=== PATIENT | female | born 1960 | race Caucasian/White ===

== ENCOUNTER 2022-12-04 11:35 | Inpatient (IN) | payer OTHER ==
[~2022-12-04] VITALS: Ht 162.6 cm; Wt 90.7 kg
[2022-12-04] MEDS ORDERED: Aspir 8181 MG PO (11:51)
[2022-12-04] MEDS ORDERED: BUPR150ER PO (11:51)
[2022-12-04] MEDS ORDERED: ATOR20 PO (11:51)
[2022-12-04] MEDS ORDERED: GUANFACINE HCL2 M1 PO (11:52)
[2022-12-04] MEDS ORDERED: NEPHRO VITAMIN0.8 MG PO (11:53)
[2022-12-04] MEDS ORDERED: MAGNESIUM OXID500 MG PO (11:53)
[2022-12-04] MEDS ORDERED: PARO30 PO (11:54)
[2022-12-04] MEDS ORDERED: PARO20 PO (11:55)
[2022-12-04] MEDS ORDERED: GABA300 PO (11:57)
[2022-12-04] MEDS ORDERED: TRAZ100 PO (11:57)
[2022-12-04] MEDS ORDERED: Lopressor 25 mg25 MG PO (11:58)
[2022-12-04] MEDS ORDERED: ACET500 PO (12:04)
[2022-12-04] MEDS ORDERED: LOPE2C PO (12:05)
[2022-12-04] MEDS ORDERED: OXYC5 PO (12:06)
[2022-12-04] MEDS ORDERED: SIME80CH PO (12:07)
[2022-12-04 13:21] LABS: Hematocrit 30.1 % (33.0-51.0); Hemoglobin 9.9 g/dL (11.5-16.0); Mean Corpuscular HGB 31.8 pg (26.0-34.0); Mean Corpuscular HGB Conc 32.9 g/dL (31.5-36.5); Mean Corpuscular Volume 97 fL (80-100); Mean Platelet Volume 8.7 fL (9.1-12.4); NRBC ABSOLUTE 0.02 K/mm3 (0.00-0.02); NRBC Auto 0.3 /100 WBC (0.0-0.2); Platelet Count 593 K/mm3 (150-400); RDW Coefficient Variation 14.2 % (11.7-14.2); RDW Standard Deviation 49.6 fL (35.1-46.3); Red Blood Cell Count 3.11 M/mm3 (3.80-5.20); White Blood Cell Count 7.82 K/mm3 (4.00-11.30)
[2022-12-04 13:46] LABS: Albumin, Blood 1.6 g/dL (3.4-5.0); Albumin/Globulin Ratio 0.4 (0.8-1.8); Bilirubin, Total 0.3 mg/dL (0.1-1.0); Bun/Creatinine Ratio 18.7 (12.0-20.0); Calcium, Blood 8.5 mg/dL (8.5-10.1); Creatinine, Blood 0.37 mg/dL (0.40-1.00); Globulin, Blood 4.5 g/dL (2.2-4.0); Potassium, Blood 3.5 mmol/L (3.5-5.5); Total Protein, Blood 6.1 g/dL (6.4-8.2)
[2022-12-04 13:52] LABS: BAND PERCENT MAN 32 % (0-8); BASOPHILS PERCENT MAN 0 % (0-2); EOSINOPHILS ABSOLUTE MAN 0.07 K/mm3 (0.00-0.68); EOSINOPHILS PERCENT MAN 1 % (0-6); LYMPHOCYTES ABSOLUTE MAN 2.26 K/mm3 (0.84-5.20); LYMPHOCYTES PERCENT MAN 29 % (21-46); METAMYELOCYTE ABSOLUTE MAN 0.07 K/mm3 (0.00-0.00); METAMYELOCYTE PERCENT MAN 1 % (0-0); MONOCYTES ABSOLUTE MAN 1.09 K/mm3 (0.16-1.47); MONOCYTES PERCENT MAN 14 % (4-13); MYELOCYTE ABSOLUTE MAN 0.07 K/mm3 (0.00-0.00); MYELOCYTE PERCENT MAN 1 % (0-0); NEUTROPHILS ABSOLUTE MAN 4.22 K/mm3 (1.96-9.15); SEG NEUTROPHILS PERCENT MAN 22 % (41-73); TOTAL CELLS COUNTED 100
[2022-12-04 15:03] LABS: Source, Urine Straight Cath
[2022-12-04 15:05] LABS: Appearance, Urine Clear (Clear); Bilirubin, Urine Neg (Neg); Blood, Urine Neg (Neg); Color, Urine Yellow (P-Yellow); Glucose Qualitative, Urine Neg (Neg); Ketones, Urine Neg (Neg); Leukocyte Esterase, Urine Neg (Neg); Nitrite, Urine Neg (Neg); Protein, Urine Neg (Neg); Specific Gravity, Urine 1.005 (1.003-1.022); Urobilinogen, Urine NORM (Normal)
[2022-12-04 20:05] VITALS: BP 146/73
[2022-12-04] MEDS ORDERED: Ventolin5 MG/1 ML INH (20:57)
[2022-12-04 21:49] LABS: Adenovirus F 40/41 Not Detected (NOT DETECT); Astrovirus Not Detected (NOT DETECT); Campylobacter Sp Not Detected (NOT DETECT); Cryptosporidium Not Detected (NOT DETECT); Cyclospora Cayetanensis Not Detected (NOT DETECT); E. Coli O157 Not Detected (NOT DETECT); Entamoeba Histolytica Not Detected (NOT DETECT); Enteroaggregative E. coli-EAEC Not Detected (NOT DETECT); Enteropathogenic E. coli-EPEC Not Detected (NOT DETECT); Enterotoxigenic E. coli-ETEC Not Detected (NOT DETECT); Giardia Lamblia Not Detected (NOT DETECT); Norovirus GI/GII Not Detected (NOT DETECT); Plesiomonas Shigelloides Not Detected (NOT DETECT); Rotavirus A Not Detected (NOT DETECT); Salmonella Sp Not Detected (NOT DETECT); Sapovirus Not Detected (NOT DETECT); Shiga Toxin-prod E. coli-STEC Not Detected (NOT DETECT); Shigella/Enteroin E. coli-EIEC Not Detected (NOT DETECT); Vibrio Cholerae Not Detected (NOT DETECT); Vibrio Sp Not Detected (NOT DETECT); Yersinia Enterocolitica Not Detected (NOT DETECT)
--- NOTE | 2022-12-05 04:26 | NUR ---
SHIFT SUMMARY 62 YR F ADMITTED ON 12/04/22 FOR SEPSIS DUE TO INFECTIOUS COLITIS. FULL CODE. NO ACUTE CHANGES THIS SHIFT. PT C/O ABDOMINAL PAIN AND INSOMNIA. SHE HAD A MEDIUM SIZE BM ON THE BEDPAN BUT WAS ABLE TO AMBULATE TO THE BATHROOM WITH ASSISTANCE AFTER THAT. SHE ASKED TO USE THE BATHROOM SEVERAL TIMES BUT WAS UNABLE TO PRODUCE ANOTHER BM. SHE ALSO C/O INSOMNIA AND HAS ONLY SLEPT OFF AND ON THROUGHOUT THE NIGHT. SHE IS A&O X 4 AND SHE SEEMS ABIT ANXIOUS.
[2022-12-05 06:16] LABS: Hematocrit 28.4 % (33.0-51.0); Hemoglobin 9.4 g/dL (11.5-16.0); Mean Corpuscular HGB 32.2 pg (26.0-34.0); Mean Corpuscular HGB Conc 33.1 g/dL (31.5-36.5); Mean Corpuscular Volume 97 fL (80-100); Mean Platelet Volume 8.7 fL (9.1-12.4); NRBC ABSOLUTE 0.03 K/mm3 (0.00-0.02); NRBC Auto 0.4 /100 WBC (0.0-0.2); Platelet Count 551 K/mm3 (150-400); RDW Coefficient Variation 14.1 % (11.7-14.2); RDW Standard Deviation 49.9 fL (35.1-46.3); Red Blood Cell Count 2.92 M/mm3 (3.80-5.20); White Blood Cell Count 7.67 K/mm3 (4.00-11.30)
[2022-12-05 06:46] LABS: Albumin, Blood 1.3 g/dL (3.4-5.0); Albumin/Globulin Ratio 0.3 (0.8-1.8); Bilirubin, Total 0.3 mg/dL (0.1-1.0); Bun/Creatinine Ratio 15.3 (12.0-20.0); Calcium, Blood 8.2 mg/dL (8.5-10.1); Creatinine, Blood 0.39 mg/dL (0.40-1.00); Globulin, Blood 4.2 g/dL (2.2-4.0); Magnesium, Blood 1.9 mg/dL (1.6-2.4); Potassium, Blood 3.2 mmol/L (3.5-5.5); Total Protein, Blood 5.5 g/dL (6.4-8.2)
[2022-12-05 07:22] VITALS: BP 147/53
[2022-12-05 07:32] LABS: BAND PERCENT MAN 10 % (0-8); BASOPHILS ABSOLUTE MAN 0.07 K/mm3 (0.00-0.23); BASOPHILS PERCENT MAN 1 % (0-2); EOSINOPHILS ABSOLUTE MAN 0.23 K/mm3 (0.00-0.68); EOSINOPHILS PERCENT MAN 3 % (0-6); LYMPHOCYTES ABSOLUTE MAN 1.99 K/mm3 (0.84-5.20); LYMPHOCYTES PERCENT MAN 26 % (21-46); METAMYELOCYTE ABSOLUTE MAN 0.07 K/mm3 (0.00-0.00); METAMYELOCYTE PERCENT MAN 1 % (0-0); MONOCYTES PERCENT MAN 4 % (4-13); PLASMA CELL ABSOLUTE MAN 0.07 K/mm3 (0.00-0.00); PLASMA CELLS PERCENT MAN 1 % (0-0); SEG NEUTROPHILS PERCENT MAN 54 % (41-73); TOTAL CELLS COUNTED 100
[2022-12-05 14:12] VITALS: BP 142/59
--- NOTE | 2022-12-05 17:54 | NUR ---
SHIFT SUMMARY: PERIODS OF CONFUSION THROUGHOUT THE DAY, USUALLY AFTER OXYCODONE ADMINISTRATION. C/O PAIN IN L SHOULDER AND LOWER ABD. HAVING FREQUENT BM'S, ALL LIQUID. C/O NAUSEA EARLY THIS MORNING, RELIEVED WITH ZOFRAN, AND HAS TOLERATED FULL LIQUID DIET ALL DAY. POTASSIUM REPLACED. WORKED WITH PHYSICAL THERAPY. GETTING UP TO BR WITH SBA AND FWW.
[2022-12-05 19:24] VITALS: BP 128/54
[2022-12-06 04:07] VITALS: BP 132/64
--- NOTE | 2022-12-06 04:55 | NUR ---
SHIFT SUMMARY 62 YR F ADMITTED ON 12/04/22 FOR RLQ PAIN/COLONIC ILIUM. FULL CODE. NO ACUTE CHANGES THIS SHIFT. PT IS STILL HAVING LOOSE BM'S BUT SHE IS ABLE TO CALL FOR ASSISTANCE AND AMBULATE TO THE BATHROOM. C/O PAIN AT ONE POINT BUT WAS ASLEEP WHEN RETURNED WITH PAIN MED SO IT WAS HELD. THIS WAS SEVERAL HOURS AGO AND SHE IS STILL ASLEEP AT THIS POINT.
[2022-12-06 05:33] LABS: Hematocrit 29.8 % (33.0-51.0); Hemoglobin 9.6 g/dL (11.5-16.0); Mean Corpuscular HGB 31.9 pg (26.0-34.0); Mean Corpuscular HGB Conc 32.2 g/dL (31.5-36.5); Mean Corpuscular Volume 99 fL (80-100); Mean Platelet Volume 8.6 fL (9.1-12.4); NRBC ABSOLUTE 0.02 K/mm3 (0.00-0.02); NRBC Auto 0.3 /100 WBC (0.0-0.2); Platelet Count 561 K/mm3 (150-400); RDW Coefficient Variation 14.2 % (11.7-14.2); RDW Standard Deviation 50.4 fL (35.1-46.3); Red Blood Cell Count 3.01 M/mm3 (3.80-5.20); White Blood Cell Count 7.09 K/mm3 (4.00-11.30)
[2022-12-06 05:48] LABS: Bun/Creatinine Ratio 11.9 (12.0-20.0); Creatinine, Blood 0.42 mg/dL (0.40-1.00); Potassium, Blood 3.5 mmol/L (3.5-5.5)
[2022-12-06 07:32] VITALS: BP 140/67
[2022-12-06 16:08] VITALS: BP 144/56
[2022-12-06 19:41] VITALS: BP 127/65
--- NOTE | 2022-12-06 19:57 | NUR ---
SHIFT SUMMARY: NO ACUTE EVENTS. C/O PAIN IN BILATERAL SHOULDERS; MEDICATED PER EMAR WITH ADEQUATE RELIEF UNTIL SHE HAS TO GET OOB. TOLERATING FULL LIQ DIET, DENIED NAUSEA. EDEMA 2+ PITTING IN BLE. ON ROOM AIR, MANAGER TRAVEL COUGH. GETTING UP FREQUENTLY TO BR, HAVING LOOSE BROWN BM'S OFTEN, SMALL AMOUNTS EACH TIME. NEEDS 1 PERSON ASSIST, GAIT BELT, AND FWW FOR AMBULATION. IS HOPING TO D/C BACK TO [facility] TOMORROW.
--- NOTE | 2022-12-06 22:13 | NUR ---
START OF SHIFT REPORT THIS STUDENT NURSE ASSUMED CARE OF THE PATIENT AT 1900 UNDER THE OBSERVATION OF NURSE SIGRID LYLES. PATIENT COMPLAINED OF PAIN, WAS ADMINISTERED 30MG OF TORADOL BY NURSE SIGRID LYLES. THIS STUDENT NURSE TRANSFERRED ESSENCE TO BATHROOM WITH FWW AND A GAIR BELT X2. HS MEDICATIONS AND PHYSICAL ASSESSMENT COMPLETED. PATIENT LEFT IN A POSITION OF COMFORT WITH CALL LIGHT WITHIN REACH AND BED ALARM ENABLED.
[2022-12-07 02:52] VITALS: BP 133/51
--- NOTE | 2022-12-07 04:24 | NUR ---
SHIFT SUMMARY DURING MY SHSIFT FROM 1899 UNTIL 644, THIS STUDENT NURSE ADDRESSED THE PT'S COLITIS BY ADMINISTERING THE PRESCRIBED ANTIBIOTICS. I MAINTAINED PT SAFETY DURING TRANSFERS WITH ONE PERSON USING A FWW AND A GAIT BELT TO AVOID FALLS. PT DID NOT FINISH RECEIVING THE PRESCRIBED IV FLAGYL DUE TO PAIN IN THE IV SITE. THIS STUDENT NURSE UNDER THE OBSERVATION AND DIRECTION OF NURSE SIGRID LYLES ASSESSED THE IV SITE. NO SWELLING, LOSS OF FEELING, OR REDDNESS PRESENT. ONCE THE INFUSION WAS DISCONTINUED THE PAIN SUBSIDDED. IV PLACEMENT ATTEMPTED BY NURSE SIGRID LYLES AT 0215 UNSUCCESSFULLY. AWAITING CHARGE NURSE ASSISTANCE TO UTELIZE THE VEIN ULTRASOUND TO PLACE NEW IV. PATIENT LEFT IN POSITION OF HIGHEST COMFORT, BED IN LOW POSITION, BED ALARM ENABLED, YELLOW SOCKS ON FEET, AND CALL LIGHT IS LEFT WITHIN REACH. VITAL SIGNS STABLE.
[2022-12-07 05:25] LABS: Hematocrit 30.9 % (33.0-51.0); Hemoglobin 9.8 g/dL (11.5-16.0); Mean Corpuscular HGB 31.3 pg (26.0-34.0); Mean Corpuscular HGB Conc 31.7 g/dL (31.5-36.5); Mean Corpuscular Volume 99 fL (80-100); Mean Platelet Volume 8.8 fL (9.1-12.4); NRBC ABSOLUTE 0.02 K/mm3 (0.00-0.02); NRBC Auto 0.3 /100 WBC (0.0-0.2); Platelet Count 611 K/mm3 (150-400); RDW Standard Deviation 50.3 fL (35.1-46.3); Red Blood Cell Count 3.13 M/mm3 (3.80-5.20); White Blood Cell Count 6.79 K/mm3 (4.00-11.30)
[2022-12-07 05:47] LABS: BAND PERCENT MAN 23 % (0-8); BASOPHILS ABSOLUTE MAN 0.06 K/mm3 (0.00-0.23); BASOPHILS PERCENT MAN 1 % (0-2); Bun/Creatinine Ratio 8.9 (12.0-20.0); Calcium, Blood 8.1 mg/dL (8.5-10.1); Creatinine, Blood 0.45 mg/dL (0.40-1.00); EOSINOPHILS ABSOLUTE MAN 0.13 K/mm3 (0.00-0.68); EOSINOPHILS PERCENT MAN 2 % (0-6); LYMPHOCYTES % ATYPICAL MANUAL 1 % (0-0); LYMPHOCYTES PERCENT MAN 27 % (21-46); MONOCYTES ABSOLUTE MAN 0.61 K/mm3 (0.16-1.47); MONOCYTES PERCENT MAN 9 % (4-13); NEUTROPHILS ABSOLUTE MAN 4.07 K/mm3 (1.96-9.15); Potassium, Blood 3.5 mmol/L (3.5-5.5); SEG NEUTROPHILS PERCENT MAN 37 % (41-73); TOTAL CELLS COUNTED 100
[2022-12-07 07:47] VITALS: BP 126/62
[2022-12-07 14:56] VITALS: BP 121/101
--- NOTE | 2022-12-07 18:28 | NUR ---
SHIFT SUMMARY: PT HAS HAD SEVERAL LOOSE BM'S TODAY WITH WATERY BROWN STOOLS. PT DID NOT EAT BANANATROL TODAY. PT ABD PAIN MANAGED WITH CURRENT PAIN REGIMEN. PT ABLE TO GET UP TO BATHROOM WITH MINIMAL ASSIST BUT DOES GET TIRED WITH MANY TRIPS. SHE HAS BEEN INCONTINENT OF STOOL SEVERAL TIMES BECAUSE SHE DOES NOT GET TO THE BATHROOM IN TIME. TOLERATING PO INTAKE. PT WORKED WITH PT TODAY.
[2022-12-07 19:59] VITALS: BP 140/59
--- NOTE | 2022-12-07 22:02 | NUR ---
START OF SHIFT tHIS STUDENT NURSE ASSUMED CARE OF THE PATIENT AT 1900. SHE WAS A&O X4, AND COMPALINED OF PAIN IN HER ABDOMEN AND SHOULDERS. BEFORE LEAVING THE ROOM THE BED ALARM WAS RESET. TYLENOL WAS GIVEN WITH HER HS MEDICATIONS, PT REFUSED TO FINISH THE PRESCRIBED BANATROL PLUS POWDER. SYSTOLIC B/P ELEVATED WITH THE PT BEING ASYMPTOMATIC. PT WAS ADMINISTERED THE PRESCRIBED LOPRESSOR TO ADDRESS THE ELEVATED VITAL SIGN. OTHER VITAL SIGNS STABLE. PT LEFT WITH CALL LIGHT WITHIN REACH, BED ALARM ENABLED, BED RAILS RAISED ON ONE SIDE OF BED, PT LEFT IN A POSITION OF COMFORT AND SAFETY.
[2022-12-08 02:43] VITALS: BP 139/62
--- NOTE | 2022-12-08 04:08 | NUR ---
SHIFT SUMMARY THIS STUDENT NURSE ADDRESSED THE PT'S COLITIS BY ADMINISTERING THE PRESCRIBED ANTIBIOTICS. I ADDRESSED HER PAIN THROUGH ADMINISTERING THE PRESCRIBED TYLENOL, REPOSITIONING, AND HEATED BLANKETS. THIS STUDENT NURSE UNDER THE SUPERVISION OF SIGRID LYLES GAVE PATIENT TEACHING ON THE IMPORTANCE OF FINIHSING THE PRESCIBED BANATROL IN IMPROVING THE PT'S BOWEL MOVEMENTS. VITAL SIGNS REMAINED STABLE THROUGH THE END OF MY SHIFT. APPLIED BARRIER CREAM AND POWDER TO PREVENT SKIN BREAKDOWN AFTER EACH BOWEL MOVEMENT. PATIENT KEPT IN A POSITION OF COMFORT AND SAFETY EVIDENCED BY THE BED BEING IN A LOW POSITION, THE BED ALARM BEING ON, BED RAILS BEING RAISED, AND CALL LIGHT WITHIN REACH. WILL CONTINUE TO MONITOR THROUGH TO THE END OF THE SHIFT.
[2022-12-08 07:29] VITALS: BP 121/53
[2022-12-08 08:23] LABS: BASOPHILS ABSOLUTE AUTO 0.07 K/mm3 (0.00-0.23); BASOPHILS PERCENT AUTO 1 % (0-2); Hematocrit 31.9 % (33.0-51.0); Hemoglobin 10.4 g/dL (11.5-16.0); Mean Corpuscular HGB 31.8 pg (26.0-34.0); Mean Corpuscular HGB Conc 32.6 g/dL (31.5-36.5); Mean Corpuscular Volume 98 fL (80-100); Mean Platelet Volume 8.6 fL (9.1-12.4); Platelet Count 672 K/mm3 (150-400); RDW Standard Deviation 49.5 fL (35.1-46.3); Red Blood Cell Count 3.27 M/mm3 (3.80-5.20); White Blood Cell Count 5.99 K/mm3 (4.00-11.30)
[2022-12-08 08:25] LABS: EOSINOPHILS ABSOLUTE AUTO 0.04 K/mm3 (0.00-0.68); EOSINOPHILS PERCENT AUTO 1 % (0-6); IMMATURE GRAN ABSOLUTE AUTO 0.21 K/mm3 (0.00-0.10); IMMATURE GRAN PERCENT AUTO 4 % (0-1); LYMPHOCYTES ABSOLUTE AUTO 1.65 K/mm3 (0.84-5.20); LYMPHOCYTES PERCENT AUTO 28 % (21-46); MONOCYTES ABSOLUTE AUTO 0.58 K/mm3 (0.16-1.47); MONOCYTES PERCENT AUTO 10 % (4-13); NEUTROPHILS ABSOLUTE AUTO 3.44 K/mm3 (1.96-9.15); NEUTROPHILS PERCENT AUTO 57 % (41-73)
[2022-12-08 08:41] LABS: Bun/Creatinine Ratio 9.6 (12.0-20.0); Calcium, Blood 8.2 mg/dL (8.5-10.1); Creatinine, Blood 0.42 mg/dL (0.40-1.00); Potassium, Blood 3.3 mmol/L (3.5-5.5)
[2022-12-08 12:19] LABS: Influenza A, PCR NEGATIVE (NEGATIVE); Influenza B, PCR NEGATIVE (NEGATIVE); Resp Syncytial Virus, PCR NEGATIVE (NEGATIVE); SARS-Cov-2 (COVID-19) PCR, MMC NEGATIVE (NEGATIVE)
[2022-12-08] MEDS ORDERED: CIPR500 PO (15:01)
[2022-12-08] MEDS ORDERED: ONDA4ODT MM (15:02)
[2022-12-08] MEDS ORDERED: FLAGYL500 M1 PO (15:02)
--- NOTE | 2022-12-08 16:30 | NUR ---
Discharge summary: [facility] [employer] w/c van with all belongings. Report called to [facility] will look for hard copy RX upon arrival.
== END 2022-12-08 16:20 | DRG 872 ==
LOC: ER 11:35 → MEDS 11:36 → ENPENDDIS 12-08 14:31 → MEDS 12-08 16:20
PROVIDERS: Family Medicine; Student in an Organized Health Care Education/Training Program; ADMIT Internal Medicine
DX: A41.9 Sepsis, unspecified organism (principal); A09 Infectious gastroenteritis and colitis, unspecified; D72.825 Bandemia; M54.30 Sciatica, unspecified side; E87.6 Hypokalemia; E83.42 Hypomagnesemia; G47.00 Insomnia, unspecified; F39 Unspecified mood [affective] disorder; G25.81 Restless legs syndrome; G47.9 Sleep disorder, unspecified; F17.210 Nicotine dependence, cigarettes, uncomplicated; I10 Essential (primary) hypertension; F12.10 Cannabis abuse, uncomplicated; F32.A Depression, unspecified; B96.89 Other specified bacterial agents as the cause of diseases classified elsewhere; Z20.822 Contact with and (suspected) exposure to COVID-19; Z79.899 Other long term (current) drug therapy; Z79.82 Long term (current) use of aspirin; Z98.890 Other specified postprocedural states; Z79.02 Long term (current) use of antithrombotics/antiplatelets; Z79.891 Long term (current) use of opiate analgesic; S89.91XA Unspecified injury of right lower leg, initial encounter; W22.8XXA Striking against or struck by other objects, initial encounter
CPT/HCPCS: 0241U; 36415; 51701; 71045; 74177; 80048; 80053; 81003; 83605; 83690; 83735; 83993; 85025; 85027; 87015; 87040; 87045; 87046; 87205; 87507; 87899; 94760; 96365-59; 96366; 96367; 96372; 96375; 96375-59; 96376; 97110; 97116; 97161; 97530; 99285-25; A9270; G0378; J0744; J1650; J1885; J2405; J7050; Q9967

== ENCOUNTER 2022-12-10 09:50 | Emergency (ER) | payer OTHER ==
[~2022-12-10] VITALS: Ht 162.6 cm; Wt 113.4 kg
[~2022-12-10 09:50] MED LIST: ACET500 PO; ATOR20 PO; Aspir 8181 MG PO; BUPR150ER PO; CIPR500 PO; FLAGYL500 M1 PO; GABA300 PO; GUANFACINE HCL2 M1 PO; LOPE2C PO; Lopressor 25 mg25 MG PO; MAGNESIUM OXID500 MG PO; NEPHRO VITAMIN0.8 MG PO; ONDA4ODT MM; OXYC5 PO; PARO20 PO; PARO30 PO; SIME80CH PO; TRAZ100 PO; Ventolin5 MG/1 ML INH
[2022-12-10 10:39] LABS: Hematocrit 33.5 % (33.0-51.0); Hemoglobin 10.7 g/dL (11.5-16.0); Mean Corpuscular HGB 31.5 pg (26.0-34.0); Mean Corpuscular HGB Conc 31.9 g/dL (31.5-36.5); Mean Corpuscular Volume 99 fL (80-100); Mean Platelet Volume 8.8 fL (9.1-12.4); NRBC ABSOLUTE 0.02 K/mm3 (0.00-0.02); NRBC Auto 0.3 /100 WBC (0.0-0.2); Platelet Count 603 K/mm3 (150-400); RDW Coefficient Variation 14.5 % (11.7-14.2); RDW Standard Deviation 51.5 fL (35.1-46.3); White Blood Cell Count 7.73 K/mm3 (4.00-11.30)
[2022-12-10 10:53] LABS: Albumin, Blood 1.6 g/dL (3.4-5.0); Albumin/Globulin Ratio 0.4 (0.8-1.8); Bilirubin, Total 0.2 mg/dL (0.1-1.0); Calcium, Blood 8.1 mg/dL (8.5-10.1); Creatinine, Blood 0.54 mg/dL (0.40-1.00); Globulin, Blood 3.8 g/dL (2.2-4.0); Potassium, Blood 3.6 mmol/L (3.5-5.5); Total Protein, Blood 5.4 g/dL (6.4-8.2)
[2022-12-10 12:14] LABS: BASOPHILS ABSOLUTE MAN 0.07 K/mm3 (0.00-0.23); BASOPHILS PERCENT MAN 1 % (0-2); EOSINOPHILS ABSOLUTE MAN 0.07 K/mm3 (0.00-0.68); EOSINOPHILS PERCENT MAN 1 % (0-6); LYMPHOCYTES ABSOLUTE MAN 1.77 K/mm3 (0.84-5.20); LYMPHOCYTES PERCENT MAN 23 % (21-46); MONOCYTES ABSOLUTE MAN 0.54 K/mm3 (0.16-1.47); MONOCYTES PERCENT MAN 7 % (4-13); NEUTROPHILS ABSOLUTE MAN 5.25 K/mm3 (1.96-9.15); SEG NEUTROPHILS PERCENT MAN 68 % (41-73); TOTAL CELLS COUNTED 100
[2022-12-10 13:31] VITALS: BP 138/61
== END 2022-12-10 13:47 | disposition home or self-care (01) ==
LOC: ER 09:50
PROVIDERS: Physician Assistant
DX: K62.5 Hemorrhage of anus and rectum (principal); R19.7 Diarrhea, unspecified; Z79.82 Long term (current) use of aspirin; Z87.891 Personal history of nicotine dependence
CPT/HCPCS: 36415; 80053; 85025; 93005; 93010; 99284-25